=== PATIENT | male | born 1960 | race Caucasian/White ===

== ENCOUNTER 2018-12-01 00:17 | Emergency (ER) | payer SELFPAY ==
[~2018-12-01] VITALS: Ht 177.8 cm; Wt 77.1 kg
--- NOTE | 2018-12-01 00:25 | NUR ---
PT JOSSYRA FOUND LYING ON SIDEWALK YELLING, SMELLS OF ETOH. PT NOT FOLLOWING COMMANDS. PT ON MONITOR IN BED 15. UNABLE TO VERBALIZE NEEDS. WILL CONTINUE TO MONITOR.
--- NOTE | 2018-12-01 00:35 | NUR ---
PHLEB AT BEDSIDE FOR LABS
[2018-12-01 00:54] LABS: BASOPHILS # (AUTO) 0.1 /CMM (0.0-0.2); BASOPHILS % (AUTO) 1.2 % (0.0-2.0); EOSINOPHILS % (AUTO) 1.3 % (0.0-6.0); HEMATOCRIT 43 % (39-51); HEMOGLOBIN 14.1 g/dL (13.5-17.5); LYMPHOCYTES # (AUTO) 1.3 /CMM (0.8-4.8); LYMPHOCYTES % (AUTO) 19.6 % (20.0-44.0); MEAN CORPUSCULAR HGB CONC 33 g/dl (31.0-36.0); MEAN CORPUSCULAR VOLUME 95 fL (80-96); MONOCYTES # (AUTO) 0.6 /CMM (0.1-1.30); MONOCYTES % (AUTO) 8.4 % (2.0-12.0); NEUTROPHILS # (AUTO) 4.8 /CMM (1.8-8.9); NEUTROPHILS % (AUTO) 69.5 % (43.0-81.0); PLATELET COUNT (AUTO) 373 /CMM (150-450); RED BLOOD CELL COUNT(AUTO) 4.48 MIL/uL (4.5-6.0); WHITE BLOOD COUNT (AUTO) 6.8 K/uL (4.3-11.0)
[2018-12-01] MEDS ORDERED: diphenhydrAMINE HCL 50 MG/ML VIAL IM ONE (01:00)
[2018-12-01] MEDS ORDERED: HALOPERIDOL LACTATE INJ 5 MG/ML VIAL IM ONE (01:00)
[2018-12-01] MEDS ORDERED: LORAZEPAM INJ 2 MG/ML VIAL IM ONE (01:00)
[2018-12-01] MEDS ORDERED: HALOPERIDOL LACTATE INJ 5 MG/ML VIAL ONE (01:04)
[2018-12-01] MEDS ORDERED: LORAZEPAM INJ 2 MG/ML VIAL ONE (01:04)
[2018-12-01] MEDS ORDERED: diphenhydrAMINE HCL 50 MG/ML VIAL ONE (01:04)
[2018-12-01 01:06] LABS: CALCIUM, SERUM 8.9 mg/dL (8.5-10.1); CREATININE 1.3 mg/dL (0.6-1.3); POTASSIUM 3.8 mmol/L (3.5-5.1)
[2018-12-01 01:14] LABS: ALBUMIN 3.8 g/dL (3.4-5.0); BILIRUBIN,DIRECT 0.1 mg/dL (0.0-0.2); BILIRUBIN,TOTAL 0.3 mg/dL (0.2-1.0); SALICYLATE 1.4 mg/dL (2.8-20.0); TOTAL PROTEIN, SERUM 8.5 g/dL (6.4-8.2)
[2018-12-01 01:15] LABS: APPEARANCE,URINE CLEAR (CLEAR); BILIRUBIN,URINE NEGATIVE (NEGATIVE); BLOOD, URINE 1+ Ery/uL (NEGATIVE); COLOR,URINE YELLOW (YELLOW); KETONES,URINE NEGATIVE (NEGATIVE); LEUKOCYTE ESTERASE ,URINE NEGATIVE (NEGATIVE); NITRITE, URINE NEGATIVE (NEGATIVE); PROTEIN,URINE NEGATIVE (NEGATIVE); UGLUCOSE NEGATIVE (NEGATIVE); UROBILINOGEN,URINE 0.2 EU/dL (0.2)
[2018-12-01 01:45] LABS: RBC,URINE 0-2 /HPF (0-2); WBC,URINE 0-2 /HPF (0-3)
[2018-12-01 01:46] LABS: BACTERIA,URINE Rare /HPF (None Seen); SQUAMOUS EPITHELIAL CELL,UR Few /HPF (None Seen)
--- NOTE | 2018-12-01 03:02 | NUR ---
Patient is resting comfortably in bed with eyes closed. Easily aroused. VSS
--- NOTE | 2018-12-01 07:15 | NUR ---
REPORT GIVEN TO SAYDA BHATTI FOR NILS
--- NOTE | 2018-12-01 07:17 | NUR ---
ASSUME PT CARE. RESTING IN BED, EASILY AROUSABLE. ON MONITOR W/ STABLE VITALS. WILL CONTINUE TO MONITOR.
--- NOTE | 2018-12-01 07:20 | NUR ---
PT IS VERBALLY RESPONSIVE. AAOX3, PROVIDED US W/ HIS NAME. STABLE VITALS. WILL CONTINUE TO MONITOR.
--- NOTE | 2018-12-01 10:26 | NUR ---
PT IS AMBULATORY W/ STEADY GAIT. AAOX3 REQUESTED TO HAVE A TAXI CALLED FOR HIM TO GO HOME. D/C IN STABLE CONDITION.
[2018-12-01 10:31] VITALS: BP 142/82
== END 2018-12-01 10:33 | disposition home or self-care (01) ==
LOC: EDBD 00:21 → ER 00:21
DX: F10.129 Alcohol abuse with intoxication, unspecified (principal); R74.0 Nonspecific elevation of levels of transaminase and lactic acid dehydrogenase [LDH]; Y90.9 Presence of alcohol in blood, level not specified
CPT/HCPCS: 36415; 80048; 80076; 80305; 80329; 81001; 82962; 85025; 96372 ×2; 99283; G0480 ×2; J1200; J1630; J2060; Z7610; 81000-TC